=== PATIENT | female | born 2000 | race Caucasian/White ===

== ENCOUNTER 2024-04-07 09:57 | Emergency (ER) | payer OTHER, SELFPAY ==
[2024-04-07 10:01] VITALS: BP 131/80; PULSE 92; RESP 16; TEMP 36.8; O2SAT 100
[2024-04-07 10:49] LABS: Appearance Urine Cloudy (Clear)
[2024-04-07 10:50] LABS: Color Urine Orange (Yellow); Specific Grav Ur 1.029 (1.001-1.035)
[2024-04-07 10:51] LABS: Add Urine Microscopic? YES
[2024-04-07 11:03] LABS: Bacteria Urine 4+ /hpf; Need Manual Microscopic Reviewed; Non Pathogenic Casts 0-2; RBC Urine 21-50 /hpf (0-2); Squamous Epithelial Cell Urine None Seen /hpf (Few); WBC Urine 0-5 /hpf (0-3)
--- NOTE | 2024-04-07 11:08 | ED.GENADULT ---
HPI - General Adult General Chief complaint: Fever Stated complaint: fever, abdominal pain, pain with urination Time Seen by Provider: 04/07/24 10:46 History of Present Illness HPI narrative: 23-year-old female history of PCOS presents emergency room for evaluation of dysuria and suprapubic pain that began yesterday. Has been taking azo with some relief of her symptoms. States that she had a fever of 100.9 yesterday but has since resolved. Also complains of left lower back pain. Review of Systems Review of Systems: ROS unremarkable except for noted in HPI Exam Narrative: GENERAL: Well-appearing, well-nourished, no physical limitations, and in no acute distress. HEAD: Normocephalic, atraumatic. EYES: Conjunctivae normal, PERRLA and EOMI. CHEST: Clear to auscultation. No respiratory distress. No wheezes rales or rhonchi. HEART: Regular rate and rhythm. No murmur heard. Normal peripheral pulses. ABDOMEN: Soft, suprapubic tenderness, nondistended, normal active bowel sounds. : Normal external male/female exam. BACK: left CVA tenderness EXTREMITIES: Normal range of motion. No edema. No clubbing or cyanosis SKIN: Warm, dry, no rash. No noted wounds NEURO: No focal deficits. Alert and oriented x3. MAEW. CN's II-XI intact bilaterally, normal gait PSYCH: Cooperative. Normal mood and affect. Course Vital Signs Vital signs: Vital Signs Temperature 36.8 C 04/07/24 10:01 Pulse Rate 92 04/07/24 10:01 Respiratory Rate 16 04/07/24 10:01 Blood Pressure 131/80 04/07/24 10:01 Pulse Oximetry 100 04/07/24 10:01 Oxygen Delivery Room Air 04/07/24 10:01 Temperature 36.8 C 04/07/24 10:01 Pulse Rate 92 04/07/24 10:01 Respiratory Rate 16 04/07/24 10:01 Blood Pressure 131/80 04/07/24 10:01 Pulse Oximetry 100 04/07/24 10:01 Oxygen Delivery Room Air 04/07/24 10:01 Medical Decision Making Vital Signs Vital Signs: Vital Signs Temperature 36.8 C 04/07/24 10:01 Pulse Rate 92 04/07/24 10:01 Respiratory Rate 16 04/07/24 10:01 Blood Pressure 131/80 04/07/24 10:01 Pulse Oximetry 100 04/07/24 10:01 Oxygen Delivery Room Air 04/07/24 10:01 Temperature 36.8 C 04/07/24 10:01 Pulse Rate 92 04/07/24 10:01 Respiratory Rate 16 04/07/24 10:01 Blood Pressure 131/80 04/07/24 10:01 Pulse Oximetry 100 04/07/24 10:01 Oxygen Delivery Room Air 04/07/24 10:01 Lab Data Labs: Lab Results 04/07/24 Range/Units 10:30 Urine Color [place] H (Yellow) Urine Appearance Cloudy H (Clear) Urine pH TNP Ur Specific Clare 1.029 (1.001-1.035) Urine Protein TNP Urine Glucose (UA) TNP Urine Ketones TNP Ur Blood (Man) TNP Urine Nitrate TNP Urine Bilirubin TNP Urine Urobilinogen TNP Add Ur Microanalysis Reviewed Leukocyte Esterase Rfl TNP Urine RBC 21-50 H (0-2) /hpf Urine WBC 0-5 (0-3) /hpf Ur Squamous Epith Cells None seen (Few) /hpf Urine Bacteria 4+ H /hpf Urine Casts 0-2 Discharge Plan Discharge Clinical Impression: UTI (urinary tract infection) Patient Disposition: Home, Self-Care Condition: Stable Instructions: Antibiotic Form, Urinary Tract Infection in Women (ED) Prescriptions: New cephalexin 500 mg capsule 500 mg PO Q12H Qty: 14 0RF Follow-up/Referrals: PHYSICIAN NOT ON STAFF,NONSTAFF [Primary Care Provider] - Time of Disposition: 11:14
[2024-04-07] MEDS: cefTRIAXone 1 GM VIAL IM (11:26)
[2024-04-07 11:41] VITALS: BP 128/65; PULSE 77; RESP 18; TEMP 36.9; O2SAT 100
== END 2024-04-07 11:44 | disposition home or self-care (01) ==
LOC: ANHED 11:15
PROVIDERS: Student in an Organized Health Care Education/Training Program; Emergency Provider Nurse Practitioner Family
DX: N39.0 Urinary tract infection, site not specified (principal); E28.2 Polycystic ovarian syndrome
CPT/HCPCS: 81001; 81025; 96372; 99283; J0696

== ENCOUNTER 2025-01-18 13:31 | Emergency (ER) | payer OTHER, SELFPAY ==
--- NOTE | ~2025-01-18 | XR_ITS ---
EXAMINATION: XR chest 2V 01/18/2025 14:35 INDICATION: Chest pain PROCEDURE: 2 view chest COMPARISON: No prior studies for comparison. FINDINGS: The lungs are clear. The cardiomediastinal silhouette is within normal limits. There are no pleural effusions. There is no pneumothorax suspected. IMPRESSION: 1: NO ACUTE CARDIOPULMONARY DISEASE. Reviewed, dictated and finalized at location A.
--- NOTE | 2025-01-18 13:41 | ECG_ITS ---
Test Date: 2025-01-18 13:45:58 Measurements Intervals [place] Rate: 86 P: 38 NM: 157 QRS: 40 QRSD: 95 T: 17 QT: 340 QTc: 409 Interpretive Statements SINUS RHYTHM POSSIBLE RIGHT VENTRICULAR CONDUCTION DELAY [RSR (QR) IN V1/V2] No previous ECG available for comparison Electronically Signed On 01-19-2025 18:58:51 CDT by William Anthony
[2025-01-18 13:42] VITALS: BP 135/90; PULSE 112; RESP 16; TEMP 36.8; O2SAT 98
--- NOTE | 2025-01-18 13:52 | ED_ITS ---
HPI - General Adult General Chief complaint: Chest Pain Stated complaint: Left chest/arm pain-takes Adderall-sent by PMD Time Seen by Provider: 01/18/25 13:39 History of Present Illness HPI narrative: 24-year-old female presented emergency department for evaluation for left-sided chest wall pain. Patient states approximately 3 weeks ago she some short lasting chest wall pain that occurred at rest. Patient states the pain began happening again last night. Patient had follow-up with her primary care physician and was encouraged to be followed up at emergency department. Patient states she does still have some mild chest wall pain that does radiate into the left arm. Patient denies any prior history of PE or DVT. Patient is not a medications for control. Patient was mildly tachycardic upon arrival to the emergency department. Patient denies any prior history of cancer. Patient does take Adderall and is on metformin for PCOS Related Data Allergies Allergy/AdvReac Type Severity Reaction Status Date / Time No Known Allergies Allergy Verified 01/18/25 13:32 Review of Systems 2 Review of Systems: All systems reviewed & are unremarkable except as noted in HPI and below Exam 2 Narrative: APPEARANCE: No distress HEAD: normocephalic, atraumatic. EYES: PERRLA/EOMI, conjunctivae clear. NOSE: Normal no drainage EARS:TMS clear with good light reflex. THROAT: Pharynx clear, no exudate. NECK: Supple. No adenopathy, no masses. RESPIRATORY: Airway patent, respirations nonlabored. Clear to auscultation bilaterally, no rales, rhonchi, wheezing. CARDIOVASCULAR: Regular rate and rhythm without murmurs rubs or gallops. ABDOMINAL: Soft, nontender, nondistended, normal bowel sounds MUSCULOSKELETAL: No reproducible left sided chest wall tenderness to palpation NEURO: Alert. Cranial nerves II through XII intact. Good gait. Good coordination SKIN: Warm, dry. Normal Color Course Vital Signs Vital signs: Vital Signs Temperature 98.3 F 01/18/25 13:42 Pulse Rate 112 H 01/18/25 13:42 Respiratory Rate 16 01/18/25 13:42 Blood Pressure 135/90 01/18/25 13:42 Pulse Oximetry 98 01/18/25 13:42 Oxygen Delivery Room Air 01/18/25 13:42 Temperature 98.3 F 01/18/25 13:42 Pulse Rate 80 01/18/25 15:34 Respiratory Rate 16 01/18/25 15:34 Blood Pressure 118/70 01/18/25 15:34 Pulse Oximetry 100 01/18/25 15:34 Oxygen Delivery Room Air 01/18/25 14:22 Medical Decision Making MDM Narrative Medical decision making narrative: [age] old female presents emergency department for evaluation for left- sided chest. Patient is currently afebrile with no leukocytosis and hemoglobin 14.2. D-dimer was negative, INR is 1.0. No acute abnormalities on her CMP lipase was negative patient's troponin was less than 0.012. Chest x-ray showed no acute cardiopulmonary disease. Patient is low risk for concern for ACS, pneumonia, pneumothorax, pulmonary embolism. Suspect musculoskeletal injury. Patient was advised to take Tylenol and ibuprofen for pain control. Differential Diagnosis Differential Diagnosis: COVID, RSV, influenza, pneumonia, pneumothorax, pulmonary emboli, costochondritis, pleurisy Vital Signs Vital Signs: Vital Signs Temperature 98.3 F 01/18/25 13:42 Pulse Rate 112 H 01/18/25 13:42 Respiratory Rate 16 01/18/25 13:42 Blood Pressure 135/90 01/18/25 13:42 Pulse Oximetry 98 01/18/25 13:42 Oxygen Delivery Room Air 01/18/25 13:42 Temperature 98.3 F 01/18/25 13:42 Pulse Rate 80 01/18/25 15:34 Respiratory Rate 16 01/18/25 15:34 Blood Pressure 118/70 01/18/25 15:34 Pulse Oximetry 100 01/18/25 15:34 Oxygen Delivery Room Air 01/18/25 14:22 Lab Data Lab results reviewed: Yes I reviewed the patient's lab results. 01/18/25 13:53 01/18/25 13:53 Labs: Lab Results 01/18/25 Range/Units 13:53 WBC 6.1 (4.5-10.0) K/mm3 RBC 4.53 (4.2-5.4) M/mm3 Hgb 14.2 (12.0-15.0) g/dL Hct 42.5 (37.0-47.0) % MCV 93.8 (80-100) fl MCH 31.3 (26-34) pg MCHC 33.4 (32-36) g/dl RDW 12.9 (11.5-14.5) % Plt Count 316 (150-375) k/mm3 MPV 9.1 (7.4-10.4) fl Immature Gran % (Auto) Not Reportable Neut % (Auto) Not Reportable Lymph % (Auto) Not Reportable Greer % (Auto) Not Reportable Eos % (Auto) Not Reportable Baso % (Auto) Not Reportable Lymph # (Auto) Not Reportable Greer # (Auto) Not Reportable Eos # (Auto) Not Reportable Baso # (Auto) Not Reportable Abs Immat Gran (auto) Not Reportable Absolute Neuts (auto) Not Reportable Absolute Nucleated RBC Not Reportable Band Neutrophils % TNP Nucleated RBC % Not Reportable Platelet Estimate Adequate (Adequate) Schistocytes None seen PT 13.3 (11.1-14.7) Seconds INR 1.0 APTT 27.7 (22.3-36.8) Seconds D-Dimer < 0.27 (<0.48) ug/mL Sodium 140 (137-145) mmol/L Potassium 3.6 (3.4-5.0) mmol/L Chloride 102 (98-107) mmol/L Carbon Dioxide 28 (22-30) mmol/L Anion Gap 10 (4-12) mmol/L BUN 15 (7-17) mg/dL Creatinine 0.82 (0.7-1.0) mg/dL Estim Creat Clear Calc 95 ml/min Estimated GFR > 60 (59 - ) Glucose 109 (65-110) mg/dL Calcium 9.2 (8.4-10.2) mg/dL Total Bilirubin 1.0 (0.2-1.3) mg/dL AST 36 (14-36) U/L ALT 65 H (6-35) U/L Alkaline Phosphatase 81 (38-126) U/L Troponin I < 0.012 (0.000-0.034) ng/mL Total Protein 9.0 H (6.3-8.2) g/dL Albumin 4.7 (3.5-5.1) g/dL Lipase 56 (23-300) U/L Discharge Plan Discharge Clinical Impression: Atypical chest pain Patient Disposition: Home Condition: Stable Instructions: Antibiotic Form, Chest Wall Pain (ED) Additional Instructions: Tylenol and ibuprofen for pain control. Have close follow-up with your primary care physician for additional outpatient cardiac testing as needed. If you have any worsening symptoms then please call or return to the emergency department. Patient Language: Azerbaijani Prescriptions: No Action cephalexin 500 mg capsule 500 mg PO Q12H Qty: 14 0RF Follow-up/Referrals: UNKNOWN,DOCTOR [Primary Care Provider] -
[2025-01-18 14:03] LABS: Hematocrit 42.5 % (37.0-47.0); Hemoglobin 14.2 g/dL (12.0-15.0); Mean Corpuscular HGB Conc 33.4 g/dl (32-36); Mean Corpuscular Hemoglobin 31.3 pg (26-34); Mean Corpuscular Volume 93.8 fl (80-100); Mean Platelet Volume 9.1 fl (7.4-10.4); Platelet Count Result 316 k/mm3 (150-375); Red Blood Count 4.53 M/mm3 (4.2-5.4); Red Cell Distribution Width 12.9 % (11.5-14.5); White Blood Count 6.1 K/mm3 (4.5-10.0)
[2025-01-18 14:15] LABS: Alanine Aminotransferase 65 U/L (6-35); Albumin Level 4.7 g/dL (3.5-5.1); Alkaline Phosphatase 81 U/L (38-126); Anion Gap 10 mmol/L (4-12); Aspartate Amino Transferase 36 U/L (14-36); Blood Urea Nitrogen 15 mg/dL (7-17); Calcium 9.2 mg/dL (8.4-10.2); Carbon Dioxide 28 mmol/L (22-30); Chloride 102 mmol/L (98-107); Estimated CRCL calculation 95 ml/min; Estimated Glomerular Filt Rate > 60; Glucose 109 mg/dL (65-110); Lipase 56 U/L (23-300); Potassium 3.6 mmol/L (3.4-5.0); Prothrombin Time 13.3 Seconds (11.1-14.7); Sodium 140 mmol/L (137-145)
[2025-01-18 14:16] LABS: Partial Thromboplastin Time 27.7 Seconds (22.3-36.8); Platelet Estimate Adequate (Adequate)
[2025-01-18 14:17] LABS: Schistocytes None Seen
[2025-01-18 14:21] VITALS: O2SAT 100
[2025-01-18 14:22] VITALS: O2SAT 100
[2025-01-18 14:23] VITALS: PULSE 91
[2025-01-18 14:27] LABS: Troponin I < 0.012 ng/mL (0.000-0.034)
--- OUTSIDE RECORDS SUMMARY | 2025-01-18 14:29 | XMS_ITS | Data Portability ---
Author Organization [facility], Main Office Address [address] [place] [address] Assessment No assessment recorded. Plan of Treatment Reminders Order Date Submit Date Provider Last Modified By Organization Details Last Modified Time Details Appointments Follow Up 15 2024 02:00P Grover Vegas PMHNP Not available Not available Not available Lab CMP, serum or plasma 2023 024 [facility] (Lab), [address] [place], [address], 05/16/2024 23:21:15 CBC w/ auto diff [address] (Lab), [address] [place], [address], 05/23/2024 08:13:21 lipid panel, serum 2023 024 [facility] (Lab), [address] [place], [address], 05/16/2024 23:21:15 glycohemo globin, total, blood [address] (Lab), [address] [place], [address], 05/23/2024 08:13:21 TSH, serum or plasma [address] (Lab), [address] [place], [address], 05/23/2024 08:13:21 T3, free, serum or plasma [address] (Lab), [address] [place] [address], [address], 05/23/2024 08:13:21 T4, free, serum [address] (Lab), [address] [place] [address], [address], 05/23/2024 08:13:21 Referral psychiatr ist referral - Please call patient to schedule an appointme nt. Thank you. 2023 [email or web address] Corinne Seseb [facility], [address], [address], 06/13/2024 08:35:56 Procedures None recorded. Surgeries None recorded. Imaging None recorded. Medication Orders metformin 500 mg tablet 2023 [facility], [facility] [place], [address], 05/16/2024 14:30:11 Ubrelvy 100 mg tablet 2023 024 [id number], [address], [place], [id number], 05/16/2024 14:30:13 Patient TargetsNo targets recorded. Patient InstructionsNo instructions recorded. Reason for Referral Psychiatrist Referral for At tention deficit hyperactivity disorder Please call patient to schedule an appointment. Thank you. Referring Physician: Shae Andrews, Family Medicine, Encounter Date: 05/16/2024 Results Created Date Observation Date Name Description Value Unit Range Abnormal Flag Note LastModifiedBy Organization Detail LastModifiedTime Result Notes None recorded. Problems Name Problem SNOMED Code Status Onset Date Resolution Date Notes Provider Name and Address Organization Details Recorded Time Polycystic ovary syndrome of bilateral ovaries 538138797 Active 2023 JUANITA Lares [address], [address], [place], [address], [employer] 4 14:17:18 Migraine with aura 5111390 Active 2023 JUANITA Lares [address], [address], [place], [address], [employer] 4 14:22:53 Attention deficit hyperactivity disorder 441334650 Active 2023 JUANITA Lares [address], [address], [place], [address], [employer] 4 14:24:56 Hypothyroidism 33257469 Active 2023 JUANITA Lares [address], [address], [place], [address], [employer] 4 14:28:12 Elevated blood-pressure reading without diagnosis of hypertension 206928479 Active 2023 JUANITA Lares [address], [address], [place], [address], [employer] 4 14:29:27 Problem Notes None recorded. Medical Equipment None Reported. Allergies No known drug allergies Medications Name Sig Start Date Stop Date Status Note LastModified by Organization Details LastModified Time metformin 500 mg tablet TAKE 1 TABLET BY MOUTH EVERY DAY DIRECTED active Not Available Not Available No t Available trazodone 50 mg tablet active Not Available Not Available Not Available dextroamphe tamine-amph etamine ER 20 mg 24hr capsule,ext end release TAKE 1 CAPSULE BY MOUTH EVERY DAY active Not Available Not Available No t Available dextroamphe tamine-amph etamine ER 10 mg 24hr capsule,ext end release TAKE 1 CAPSULE BY MOUTH EVERY DAY active Not Available Not Available No t Available hydroxyzine HCl 25 mg tablet TAKE 1 TABLET BY MOUTH EVERY 6 HOURS NEEDED active Not Available Not Available No t Available dextroamphe tamine-amph etamine ER 30 mg 24hr capsule,ext end release TAKE 1 CAPSULE BY MOUTH EVERY DAY active Not Available Not Available No t Available hydroxyzine HCl 10 mg tablet active Not Available Not Available Not Available nitrofurant oin monohydrate /macrocryst als 100 mg capsule 05/16 completed Not Available Not Available Not Available Ubrelvy 100 mg tablet TAKE 1 TABLET BY MOUTH TWICE DAILY NEEDED FOR HEADACHES active Not Available Not Available No t Available Vitals Date Recorded Body weight Body mass index (BMI) Body height Body temperature Heart rate Respiratory rate Oxygen saturation Oxygen saturation in Arterial blood by Pulse oximetry Pain severity - 0-10 verbal numeric rating [Score] - Reported Systolic blood pressure Diastolic blood pressure Provider Name and Address Organization Details Last Updated DateTime 81055.4 4 g 36.3 kg/m2 160.02 cm 97.9 [degF] 91 /min 24 /min 97 % 97 % 0 160 mm[Hg] 100 mm[Hg] Delphine Parr RN MD [employer] [facility] 14:08:37 Social History Question Answer Notes LastModified by Organizat ion Details LastModified Time Tobacco Smoking Status Never Smoker Delphine Parr RN [facility], [employer] 05/16/2024 14:10:08 Do You Have An Advance Directive? No Information not available 05/16/2024 What Is Your Level Of Alcohol Consumption? Occasional Information not available 05/16/2024 What Is Your Level Of Caffeine Consumption? Moderate Information not available 05/16/2024 In The 14 Days Before Symptom Onset, Have You Had Close Contact With A Laboratory-confir med COVID-19 While That Case Was Ill? No Information not available 05/16/2024 In The 14 Days Before Symptom Onset, Have You Had Close Contact With A Person Who Is Under Investigation For COVID-19 While That Person Was Ill? No Information not available 05/16/2024 Are You Currently Employed? No Information not available 05/16/2024 What Type Of Diet Are You Following? REGULAR Information not available 05/16/2024 Which Illicit Or Recreational Drugs Have You Used? MJ Information not available 05/16/2024 Have There Been Any Changes To Your Family Or Social Situation? No Information no t available 05/16/2024 How Many Years Have You Used Illicit Or Recreational Drugs? 7 Information not available 05/16/2024 Do You Use Insect Repellent Routinely? Yes Information not available 05/16/2024 Where Do You Live? Apartment Information not available 05/16/2024 Do You Have A Medical Power Of Equip Maint Eng? No Information not available 05/16/2024 How Many Children Do You Have? 0 Information not available 05/16/2024 Do You Have Any Pets? Yes Information not available 05/16/2024 What Is Your Relationship Status? Single Fiance Information not available 05/16/2024 Do You Use Your Seat Belt Or Car Seat Routinely? Yes Information not available 05/16/2024 Are You Sexually Active? Yes Information not available 05/16/2024 Do You Have Smoke And Carbon Monoxide Detectors In Your Home? Yes Information not available 05/16/2024 Are You Passively Exposed To Smoke? Yes Information no t available 05/16/2024 Are There Any Smokers In Your House? Yes Information not available 05/16/2024 Do You Participate In Social Media? Yes Information not available 05/16/2024 Do You Feel Stressed (tense, Restless, Nervous, Or Anxious, Or Unable To Sleep At Night)? [id number] Information not available 05/16/2024 Do You Use Any Illicit Or Recreational Drugs? Yes Information not available 05/16/2024 Do You Use Sunscreen Routinely? Yes Information not available 05/16/2024 Have You Recently Traveled Abroad? No Information not available 05/16/2024 Are You Currently In School? Yes Information not available 05/16/2024 Sex: Unknown Functional Status Question Answer Note LastModified by Organization D etails LastModified Time What is your exercise level? None Information not available 05/16/2024 Mental Status None recorded. Family History Relationship Description Onset Age of this Age Resolved Age Notes LastModified by Organization Details LastModified Time Maternal Grandmother Hypertensive disorder Not available 2023 14:08:55 Maternal Grandmother Diabetes mellitus Not available 2023 14:09:04 Medical History Condition Response ADD/ADHD Y HEADACHES/MIGRAINES Y OTHER # 1 Y OBESITY Y Gynecological History Statement/Question Response Duration of Flow (days) Age at Menarche 10 Flow Heavy Date of LMP 02/13/2024 Frequency of Cycle (Q days) Sexually Active? Y Obstetrics History GPAL:G 0 P 0 0 0 0 Past Encounters Encounter ID Performer Location Encounter Start Date Encounter Closed Date Diagnosis/Indication Diagnosis SNOMED-CT Code Diagnosis ICD10 Code Diagnosis Note [id number] Cordell Sparrow MD [facility] [address] [address] 05/16/2024 13:59:29 05/16/2024 14:41:29 Polycystic ovary syndrome of bilateral ovaries 397535474 E28.2 Migraine with aura 09354 06 G43.109 Failed triptans Attention deficit hyperactivity disorder 970491616 F90.9 Hypothyroidism 59111854 E03.9 Elevated blood-pressure reading without diagnosis of hypertension 605774527 R03.0 [id number] Corinne Vegas [facility] [address] [address] 06/15/2024 15:59:18 06/15/2024 17:26:51 [id number] Corinne Vegas [facility] [address] [address] 07/13/2024 16:50:08 07/13/2024 17:27:48 [id number] Corinne Vegas PMHNP [facility] [address] [address] 08/24/2024 15:41:28 08/24/2024 16:26:52 [id number] Corinne Vegas PMHNP [facility] [address] [place] [address] 09/28/2024 15:43:13 09/28/2024 16:10:21 [id number] Corinne Vegas, PMHNP [facility] [address] [place] [address] 12/28/2024 15:02:15 12/28/2024 15:36:46 Health Concerns Section Related Observation LastModified by Organization Detai ls LastModified Time None Recorded Concern Status LastModified by Organization Details LastModified Time None Recorded Advance Directives Directive N: Payers Encounter Date Sequence Insurance Name Policy Number Policy Mitchell Covered Member ID Mitchell Member ID Guarantor Name 05/16/2024 1 [place]: [facility] Korin Mike [id number] Korin Mckeon Notes Date Note Type Note Provider Name and Address Organization Details Recorded Time 05/16/2024 text/html Korin maldonado is a 23 year old female patient here today to establish care. PCOS diagnosed by OBGYN. Not currently managing with medications. OBGYN did labs and found abnormal thyroid levels Migraines are coming weekly, pain 6/10, newly onset double vision. Took sumatriptan in the past and caused vomiting. Would like to try Ubrelvy ADHD was diagnosed at [facility] 2 years ago, would like to see psych. BP elevated on arrival, recheck 128/88. Flu shot: declinesCOVID vaccines: x2Tdap: overdueWWE: 2 years agoMammogram: not indicatedColonoscop y: not indicated Shae Andrews, PERSONAL INVESTMENT ADVISER [address], [facility] [address], [place], [address], [facility] [email or web address] [facility] 05/16/2024 14:36:05 OBGyn Episode No OBEpisode recorded.
[2025-01-18] MEDS: KETOROLAC 15 MG/ML VIAL (*BKC) IV PUSH (14:32)
--- OUTSIDE RECORDS SUMMARY | 2025-01-18 14:53 | XMS_ITS | Clinical Summary ---
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 Name Role Phone Barbara Puckett MD Primary Care Provider Allergies No known active allergies Medications No known medications Active Problems Problem Noted Date Diagnosed Date Abnormal uterine bleeding 02/02/2024 Oligomenorrhea 02/02/2024 Attention deficit hyperactiv ity disorder (ADHD), predominantly inattentive type 08/20/2022 Obesity (BMI 35.0-39.9 without comorbidity) 09/2021 Encounters Date Type Department Care Team Description 01/02/2025 External Device Data [facility] ABSTRACTION Provider, Abstract 12/06/2024 External Device Data [facility] AB[facility]CTION Provider, Abstract 12/06/2024 External Device Data [facility] Provider, Abstract 11/25/2024 External Device Data [facility] ABSTRACTION Provider, Abstract 11/24/2024 External Device Data [facility] ABSTRACTION Provider, Abstract 11/22/2024 External Device Data [facility] ABSTRACTION Provider, Abstract 11/08/2024 External Device Data [facility]CTION Provider, Abstract from Last 3 Months Immunizations Immunization Administration Dates Next Due (ACTHIB/HIBERIX)(2 MOS-5 YRS /6 WKS-4 YRS) HAEMOPHILUS INFLUENZAE TYPE B VACCINE (HIB), PRP-T CONJUGATE, 4 DOSE, 0.5 ML IM 02/09/2001,2000 (GARDASIL 9)(9-45 YRS) HUMAN PAPILLOMAVIRUS VACCINE, TYPES 6, 11, 16, 18, 31, 33, 45, 52, 58, NONAVALENT (9VHPV), 2 OR 3 DOSE, IM 10/06/2022 (INFANRIX)(6 WKS-6 YRS) DIPT HERIA, TETANUS TOXOIDS, AND ACCELLULAR PERTUSSIS VACCINE (DTAP), 0.5 ML IM 02/09/2001,2000 (IPOL)(6 WKS AND UP) POLIOVI MALINDA VACCINE, INACTIVATED (IPV), 3 DOSE, SUBCUT OR IM 2000 (RECOMBIVAX HB/ENGERIX-B)(0- 19 YRS) HEPATITIS B VACCINE 5 MCG/0.5 ML OR 10 MCG/0.5 ML PED OR ADOL 3 DOSE (PF), IM 07/28/2001,02/09/2001 INFLUENZA VACCINE QUADRIVALE NT 6 MOS UP PF IM 10/06/2022 Pneumococcal 7-valent Conjug ate Vaccine IM VFC 07/28/2001,02/09/2001,2000 Family History Medical History Relation Name Comments ADHD Brother Diabetes Maternal Grandmother Kasia victoria Hypertension Maternal Grandmother Kasia Yan na ADHD Mother Breast Cancer Neg Hx Colon Cancer Neg Hx Ovarian Cancer Neg Hx Pancreatic Cancer Neg Hx Prostate Cancer Neg Hx Uterine Cancer Neg Hx Relation Name Status Comments Brother Maternal Grandmother Kasia Tello Mother Social History Tobacco Use Types Packs/Day Years Used Date Smoking Tobacco: Never Passive Smoke Exposure: Never Smokeless Tobacco: Never Tobacco Cessation:Counseling Given: No Alcohol Use Standard Drinks/Week Comments Yes 1 (1 standard drink = 0.6 oz pur e alcohol) Comments No Sex and Gender Information Value Date Recorded Sex Assigned at Not on file Legal Sex Female 10:20 PM CDT Gender Identity Not on file Sexual Orientation Not on file Last Filed Vital Signs Vital Sign Reading Time Taken Comments Blood Pressure 110/68 02/02/2024 2:01 PM CDT Pulse 96 11/08/2023 1:58 PM DIRECTOR OF FIRST IMPRESSIONS Temperature 36.3 C (97.3 F) 11/08/2023 1:58 PM [employer] OF FIRST IMPRESSIONS Respiratory Rate 18 10/31/2023 2:33 PM DIRECTOR OF FIRST IMPRESSIONS Oxygen Saturation 98% 11/08/2023 1:58 PM DIRECTOR OF FIRST IMPRESSIONS Inhaled Oxygen Concentration - - Weight 93.4 kg (205 lb 12.8 oz) 02/02/2024 2:01 PM CDT Height 160 cm (5' 3 ) 02/02/2024 2:01 PM CDT Body Mass Index 36.46 02/02/2024 2:01 PM CDT Plan of Treatment Health Maintenance Due Date Last Done Comments HEPATITIS B VACCINES (3 of 3 - 3-dose series) 09/22/2001 07/28/2001, 02/09/2001 DTAP/TDAP/TD VACCINES (3 - Tdap) 2019 12/18/2004, 03/09/2002, 02/09/2001, Additional history exists CERVICAL CANCER SCREENING 2021 HPV/Cotest (21-29) 2021 PAP SMEAR 2021 INFLUENZA VACCINE (#1) 2024 10/06/2022 COVID-19 Vaccine (3 - 2023-2 5 season) 2024 04/20/2021, 03/30/2021 HPV VACCINES Completed 10/06/2022, 06/21/2012 CHLAMYDIA SCREENING (ANNUAL) 11-24 YEARS Discontinued 10/31/2023 Procedures Procedure Name Priority Date/Time Associated Diagnosis Comments VAGINOSIS/VAGINITIS PANEL PLUS Routine 10/31/2023 12:00 AM DIRECTOR OF FIRST IMPRESSIONS from Last 3 Months or Most Recently Relevant to Health Maintenance Results * VAGINOSIS/VAGINITIS PANEL PLUS (10/31/2023 12:00 AM DIRECTOR OF FIRST IMPRESSIONS) BACTERIAL VAGINOSIS NEGATIVE NEGATIVE [facility] [place] JODY SPECIES NOT DETECTED NOT DETECTED [facility] [place] JODY GLABRATA NOT DETECTED NOT DETECTED [facility] [place] Comment: Jody species C. albicans, C. tropicalis, C. parapsilosis, and/or C. dubliniensis can be detected, but not differentiated, in the Jody spp. result. TRICHOMONAS VAGINALIS (TV), TMA NOT DETECTED NOT DETECTED [facility] [place] C TRAC RNA NOT DETECTED NOT DETECTED [facility] [place] N.GONORRHOEAE RNA, TMA NOT DETECTED NOT DETECTED [facility] [place] Comment: For additional information, please refer to https://education.Appiny/faq/DGP234 (This link is being provided for information/ educational purposes only.) Test Performed at: [facility] [address] [place] [address] Evy Perales MD Genital SPECIMEN FROM VAGINA / Unknown 10/31/2023 11/01/2023 10:56 AM DIRECTOR OF FIRST IMPRESSIONS [facility] - GENERAL ORDERA BRENDAS Final Result [facility] [phone] [facility] [address] [place] [address] from Last 3 Months or Most Recently Relevant to Health Maintenance Insurance [employer] [place] [employer] [place] Care Teams Plywood Layup Line Core Layer Relationship Specialty Start Date End Date Barbara Puckett MD PCP - General Family Practice 08/12/22
--- OUTSIDE RECORDS SUMMARY | 2025-01-18 14:53 | XMS_ITS | Clinical Summary ---
Author Organization [facility] Address [address] [address] Care Team Providers Care Hardwood Floor Installer Name Role Phone Garth Castano MD Primary Care Provider [phone] Source Comments [facility],non-owned Affiliates and Associated Physician Practices is amultiple site organization consisting of ambulatory clinics and hospital sitesin [place], [place], [place] and [place]. This disclosure is being madepursuant to the Care Everywhere program and may not contain all information available regarding this patient. Last updated 18.[facility] Allergies No known active allergies Medications * Be aware that medications may not be up to date on this document. Alwaysverify current medications with the patient. naproxen (NAPROSYN) 500 MG tablet Take 1 Tab by mouth 2 times daily as needed for Pain (Take as needed, only with meals) 14 Tab 0 6 Active acetaminophen (TYLENOL) 325 MG tablet Take 2 Tabs by mouth every 6 hours as needed for Pain Maximum allowable Acetaminophen amount = 4 Grams (4000 mg) / 24 hours. 20 Tab 0 6 Active cetirizine (ZYRTEC) 10 MG tablet Take 10 mg by mouth once daily 6 Active fluticasone propionate (FLONASE) 50 MCG/ACT nasal spray [place] 1 [place] into each nostril once daily 6 Active ibuprofen (MOTRIN) 800 MG tablet 6 Active metoclopramide (REGLAN) 10 MG tabletIndicati ons:Migraine Take 1 Tab by mouth 2 times daily Can give 3 times if necessary Reasons: Migraine 15 Tab 0 6 Active diphenhydrAMIN E (BENADRYL) 25 MG tablet Take 1 Tab by mouth every 4 hours as needed (take with reglan to prevent its side effect) 30 Tab 0 6 Active polyethylene glycol 3350 (MIRALAX) packet Take 17 g by mouth once daily 150 g 6 Active Active Problems Problem Noted Date Diagnosed Date New onset headache 06/16/2016 Overview (06/16/2016): New onset headache- 2 weeks ago, started in evening and has been persistent since then. The headache is migrainous- starts on right side frontal region, becomes diffuse, throbbing, moderate to severe intensity, associated with light/sound sensitivity and dizziness. She has been able to sleep, rather is sleeping more to get over the pain. The headache returns within hours of waking up and is relieved to some extent with NSAIDs and iv meds. Her neurological exam is significant for mild blurring of right nasal optic disc but the rest of neurological exam is normal and non focal. Differential included pseudotumor/IIH, new onset persistent daily headaches and migraine. Plan- Ophthalmology referral to rule out papilledema Will decide follow up plan after the ophthalmology evaluation Family History Medical History Relation Name Comments Depression Brother 1 Depression Brother 2 Migraine Neg Hx Relation Name Status Comments Brother 1 Brother 2 Social History Tobacco Use Types Packs/Day Years Used Date Smoking Tobacco: Never Alcohol Use Standard Drinks/Week Comments No 0 (1 standard drink = 0.6 oz pur e alcohol) Comments Unknown Sex and Gender Information Value Date Recorded Sex Assigned at Not on file Legal Sex Female 6:06 AM PROPERTY MAN Gender Identity Not on file Sexual Orientation Not on file Last Filed Vital Signs Vital Sign Reading Time Taken Comments Blood Pressure 115/81 07/05/2016 3:19 PM CDT Pulse 86 07/05/2016 5:40 PM CDT Temperature 37 C (98.6 F) 07/05/2016 3:19 PM CDT Respiratory Rate 20 07/05/2016 5:40 PM CDT Oxygen Saturation 100% 07/05/2016 3:19 PM CDT Inhaled Oxygen Concentration - - Weight 67.3 kg (148 lb 5.9 oz) 07/05/2016 3:19 P M CDT Height 160.9 cm (5' 3.35 ) 06/16/2016 11:27 AM C DT Body Mass Index - - Plan of Treatment Health Maintenance Due Date Last Done Comments HIV SCREENING 2015 HPV VACCINE (1 - 3-dose series) 2015 CHLAMYDIA/GONORRHEA SCREENING 2016 HEPATITIS C SCREENING 07/11/2018 DTAP/TDAP/TD VACCINES (1 - Tdap) 2019 HEPATITIS B VACCINE (1 of 3 - 19+ 3-dose series) 2019 COVID-19 VACCINE (1 - 2023-2 5 season) 2024 DEPRESSION SCREENING 09/20/2024 INFLUENZA VACCINE (Season Ended) 2025 ZOSTER VACCINE (1 of 2) 2050 HIB VACCINE Aged Out No longer eligi ble based on patient's age to complete this topic MENINGOCOCCAL (Group B) VACC INE SHARED DECISION-MAKING Aged Out No longer eligibl e based on patient's age to complete this topic MENINGOCOCCAL GROUPS A/C/Y/W VACCINE Aged Out No longer eligible b ased on patient's age to complete this topic PNEUMOCOCCAL VACCINE Aged Out No long er eligible based on patient's age to complete this topic Insurance [facility] Care Teams Hardwood Floor Installer Relationship Specialty Start Date End Date Garth Castano MD [address] [place] [address] PCP - General 01/19/22
[2025-01-18 15:25] LABS: D Dimer < 0.27 ug/mL (<0.48)
[2025-01-18 15:34] VITALS: BP 118/70; PULSE 80; RESP 16; O2SAT 100
== END 2025-01-18 16:04 | disposition home or self-care (01) ==
PROVIDERS: Emergency Provider Emergency Medicine
DX: R07.89 Other chest pain (principal); E28.2 Polycystic ovarian syndrome; Z79.899 Other long term (current) drug therapy; Z79.84 Long term (current) use of oral hypoglycemic drugs; R94.31 Abnormal electrocardiogram [ECG] [EKG]
CPT/HCPCS: 36415; 71046; 80053; 83690; 84484; 85025; 85380; 85610; 85730; 93005; 96374; 99284; J1885